=== PATIENT | female | born 1950 | race Caucasian/White ===

== ENCOUNTER 2019-05-01 10:14 | Emergency (ER) | payer OTHER ==
[2019-05-01] MEDS ORDERED: SODIUM CHLORIDE 0.9% 1000ML 1,000 ML IVS PRN (10:40)
[2019-05-01] MEDS ORDERED: MORPHINE SULFATE INJ 10 MG/ML VIAL IV ONE (10:41)
--- NOTE | 2019-05-01 11:18 | ED.PDOC ---
History of Present Illness - General Chief Complaint: Bite: Animal/Insect/Human Stated Complaint: bite to right heel Time Seen by Provider: 05/01/19 10:37 Source: patient Exam Limitations: no limitations - History of Present Illness Initial Comments: Patient presents with a suspected snakebite. She was in her garden in [facility] and she felt a sting to her right heel. She did not see a snake. She has pain to the right heel with redness. She thinks it might have been a cottonmouth. No other injuries. No previous snake bites that she knows of. Timing/Duration: 1/2 hour Severity: moderate Improving Factors: nothing Worsening Factors: nothing Associated Symptoms: denies symptoms Allergies/Adverse Reactions: Allergies NO KNOWN ALLERGY Allergy (Verified 05/01/19 10:26) Home Medications: Ambulatory Orders NK 05/01/19 Review of Systems - Review of Systems Constitutional: States: no symptoms reported EENTM: States: no symptoms reported Respiratory: States: no symptoms reported Cardiology: States: no symptoms reported Gastrointestinal/Abdominal: States: no symptoms reported Genitourinary: States: no symptoms reported Musculoskeletal: States: no symptoms reported Skin: States: see HPI Neurological: States: no symptoms reported Endocrine: States: no symptoms reported Hematologic/Lymphatic: States: no symptoms reported Past Medical History (General) - Patient Medical History Hx Asthma: No Hx Cardiac Disorders: No Hx Congestive Heart Failure: No Hx Diabetes: No Hx Gastroesophageal Reflux: No Surgical History: no surgical history Family Medical History - Family History Mother Family History: No Known Physical Exam - Physical Exam General Appearance: Obvious distress - mild Eye Exam: bilateral normal Ears, Nose, Throat: normal ENT inspection Neck: non-tender, full range of motion, supple Respiratory: lungs clear, normal breath sounds Cardiovascular/Chest: normal peripheral pulses, regular rate, rhythm Gastrointestinal/Abdominal: normal bowel sounds, non tender, soft Back Exam: normal inspection, no CVA tenderness Extremity: normal range of motion, non-tender, other - two puncate wounds, 1.5 cm apart. Blanching erythema around the heel and posterior foot. TTP Neurologic: no motor/sensory deficits, alert, normal mood/affect, oriented x 3 Progress - Progress Progress: 05/01/19 17:12 Laboratory Tests 05/01/19 05/01/19 05/01/19 10:30 10:30 10:30 WBC 6.6 RBC 4.58 Hgb 14.4 Hct 41.9 MCV 91.4 MCH 31.3 H MCHC 34.3 RDW 13.4 Plt Count 239 MPV 8.7 Absolute Neuts (auto) 4.30 Absolute Lymphs (auto) 1.20 Absolute Monos (auto) 0.70 Absolute Eos (auto) 0.30 Absolute Basos (auto) 0.10 Neutrophils % 65.3 Lymphocytes % 18.4 L Monocytes % 10.5 H Eosinophils % 4.6 Basophils % 1.2 PT 10.0 INR 1.00 PTT (SP) 27.1 Fibrinogen Sodium 145 Potassium 3.4 L Chloride 111 Carbon Dioxide 22 Anion Gap 15.4 BUN 23 H Creatinine 0.89 BUN/Creatinine Ratio 25.8 H Random Glucose 100 Serum Osmolality 292.5 Calcium 9.4 Total Bilirubin 0.9 AST 24 ALT 17 Alkaline Phosphatase 119 Serum Total Protein 7.5 Albumin 4.1 Globulin 3.4 Albumin/Globulin Ratio 1.2 05/01/19 05/01/19 16:11 16:11 WBC 7.6 RBC 4.32 Hgb 13.5 Hct 39.6 MCV 91.7 MCH 31.2 H MCHC 34.0 RDW 13.5 Plt Count 237 MPV 7.5 Absolute Neuts (auto) 5.60 Absolute Lymphs (auto) 1.00 Absolute Monos (auto) 0.90 H Absolute Eos (auto) 0.20 Absolute Basos (auto) 0.00 Neutrophils % 73.2 Lymphocytes % 12.6 L Monocytes % 11.2 H Eosinophils % 2.4 Basophils % 0.6 PT 10.4 INR 1.04 PTT (SP) 27.6 Fibrinogen 308 Sodium Potassium Chloride Carbon Dioxide Anion Gap BUN Creatinine BUN/Creatinine Ratio Random Glucose Serum Osmolality Calcium Total Bilirubin AST ALT Alkaline Phosphatase Serum Total Protein Albumin Globulin Albumin/Globulin Ratio Erythema increase by several centimeters in the first 4 hours but then started to resolve. By 7 hours, the erythema was starting to fade and the patient was pain free. Coags wnl. Pain resolved. Patient asymptomatic at discharge. Care instructions given. E.R. warnings given. Questions were elicited and answered. Patient voiced understanding and agreement with the plan. Departure - Departure Clinical Impression: Snake bite Disposition: Discharge to Home or Self Care Condition: Good Departure Forms: ED Discharge - Pt. Copy, Patient Portal Self Enrollment Instructions: Snake Bite Diet: resume usual diet Activity: increase activity as tolerated Home Medications: Ambulatory Orders NK 05/01/19 Additional Instructions: Return to the E.R. if rash returns, for loss of feeling in the right leg or foot, increasing pain in the right leg or foot, inability to move the muscles of the right leg or foot, or temperature above 100.4.
[2019-05-01 15:13] VITALS: O2SAT 97
[2019-05-01 17:09] VITALS: BP 131/73
[2019-05-01 18:15] VITALS: TEMP 98.4
== END 2019-05-01 17:30 | disposition home or self-care (01) ==
LOC: ER 10:14
DX: S91.351A Open bite, right foot, initial encounter (principal); W59.11XA Bitten by nonvenomous snake, initial encounter; Y92.007 Garden or yard of unspecified non-institutional (private) residence as the place of occurrence of the external cause